=== PATIENT | male | born 1975 | race Caucasian/White ===

== ENCOUNTER 2020-06-23 16:23 | Outpatient (REF) | payer BC, SELFPAY | END 2020-06-23 16:24 | disposition home or self-care (01) | LOC: HO.LAB 16:23 | PROVIDERS: Visit Provider Internal Medicine | DX: Z20.828 Contact with and (suspected) exposure to other viral communicable diseases (principal) | CPT/HCPCS: C9803; U0003 ==

== ENCOUNTER 2024-04-04 09:27 | Outpatient (AMB) | payer BC, SELFPAY ==
[2024-04-04 09:34] VITALS: BP 120/80; PULSE 84; O2SAT 98; BMI 27.5
--- NOTE | 2024-04-04 09:34 | HO.NEPHOV ---
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 He went on Zepbound and lost 30 pounds. He is compliant with his medication. He developed hypotension with weight loss and his metoprolol was discontinued. 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 He does not chest pain, chest pressure , orthostatic symptoms, shortness of breath, proximal nocturnal dyspnea, orthopnea, pedal edema or urinary symptoms. He is active. He does not consume excess sodium in the diet. He is not a smoker. Has not had any coronary artery disease, congestive heart failure, CVA or peripheral arterial disease. He feels well. [facility] Medical History (Updated 04/04/24 @ 09:38 by Arun Khoury MD) Hypertension Surgical History (Updated 04/04/24 @ 09:37 by Gisel Hi MA) History of right inguinal hernia repair History of cholecystectomy Family History Maternal Grandfather Prostate cancer Maternal Aunt Breast cancer Social History Alcohol intake: never Patient Tobacco Use Status: Never used Tobacco Review of Systems Const All systems reviewed & are unremarkable except as noted in HPI and below Physical Exam Vital Signs: Last Vital Signs Pulse 84 04/04/24 09:34 BP 120/80 04/04/24 09:34 Pulse Ox 98 04/04/24 09:34 Oxygen Delivery Method Room Air 04/04/24 09:34 BMI result Body Mass Index 27.5 Const General: comfortable and no acute distress Orientation/consciousness: patient oriented x3 HEENT Head: Yes normocephalic Mouth: Normal oral and palatal mucosa present Eyes EOM: EOMs intact bilaterally Neck Neck: Yes supple Resp Auscultation: clear to auscultation bilaterally Cardio Jugular venous distension: no JVD Rate: regular rate GI Palpation (GI): Soft to palpation Auscultation: normal bowel sounds General: Yes no CVA tenderness Back/Spine/Pelvis Back: no CVA tenderness Skin General skin exam: no rashes or lesions noted Neuro General: patient oriented x3 and moves all extremities Extrem General: Yes no pedal edema Results Reviewed Nephrology Results: No Data to Display Assessment & Plan Assessment & Plan (1) Hypertension: Code(s): I10 - Essential (primary) hypertension Category: Medical Qualifiers: Hypertension type: primary hypertension Qualified Code(s): I10 - Essential (primary) hypertension Plan Pepe has history of primary hypertension and had been on metoprolol before which was stopped as he was feeling dizzy with weight loss on Zepbound. His blood pressure is currently well controlled. He does not have any history of coronary artery disease, congestive heart failure, CVA or peripheral arterial disease. He is active. He does not consume excess sodium in the diet. His urine output is good. He has no orthostatic symptoms. I encouraged him to continue lifestyle modification. I will consider repeating an ambulatory 24 hour blood pressure monitor through my office if his blood pressure started going up before embarking on medications. All his recent blood work had been stable. Answered all questions. Medications: Discontinued metoprolol succinate ER Discontinued Reason: Patient no longer taking 75 mg (3 x 25 mg) PO DAILY 90 days 270 tabs 3RF Coding Level of Care Code Est Pt Level 4 (59783) Diagnoses Primary hypertension I10 Hypertension type: primary hypertension
== END 2024-04-04 09:51 | disposition home or self-care (01) ==
PROVIDERS: Visit Provider Internal Medicine Nephrology
DX: I10 Essential (primary) hypertension (principal)
CPT/HCPCS: 99214

== ENCOUNTER → 2024-04-04 09:27 | Outpatient (BNVA) | payer BC, SELFPAY | PROVIDERS: Visit Provider Internal Medicine Nephrology ==